=== PATIENT | female | born 1980 | race African-American/Black ===

== ENCOUNTER 2024-02-15 21:21 | Emergency (ER) | payer BC, OTHER ==
[~2024-02-15 21:21] MED LIST: Iopamidol-370 76% 500 ML MDV (1 ML CHARGE) ONE
[2024-02-15] MEDS ORDERED: Sodium Chloride 0.9% 100 ML ONE (21:32)
[2024-02-15] MEDS ORDERED: CEFAZOLIN 2 GM VIAL ONE (21:32)
[2024-02-15] MEDS ORDERED: Boostrix 0.5 ML (Tdap) VIAL (>/=7 yrs of age) ONE (21:32)
[2024-02-15] MEDS ORDERED: Ondansetron PF 4 MG/2 ML Vial ONE (21:37)
[2024-02-15] MEDS ORDERED: Morphine 4 MG/ML VIAL ONE ×2 (21:37→22:40)
[2024-02-15 21:47] LABS: Hematocrit 28.4 % (36.0-47.0); Hemoglobin 7.5 g/dL (12.0-16.0); Mean Corpuscular HGB CONC 26.4 g/dL (32.0-36.0); Mean Corpuscular Hemoglobin 16.6 pg (27.0-31.0); Platelet Count 277 10x3/uL (130-400); RBC Distribution Width 22.2 % (11.5-14.5); Red Blood Cell (RBC) Count 4.51 mill/uL (4.20-5.40)
[2024-02-15 21:56] LABS: ALT (SGPT) 7 U/L (8-55); AST (SGOT) 11 U/L (5-34); Albumin 3.9 g/dL (3.5-5.0); Alkaline Phosphatase 67 U/L (40-110); Anion Gap 13 mmol/L (10-20); BUN (Urea Nitrogen) 13 mg/dL (7.0-18.7); Bilirubin, Total 0.5 mg/dL (0.2-1.2); Calc. Creatinine Clearance 0 mL/min (70-130); Calcium 8.5 mg/dL (7.8-10.44); Carbon Dioxide 21 mmol/L (22-29); Chloride 107 mmol/L (98-107); Estimated GFR 104; Globulin 3.3 g/dL (2.4-3.5); Glucose 140 mg/dL (70-105); Potassium 3.1 mmol/L (3.5-5.1); Protein, Total 7.2 g/dL (6.0-8.3); Sodium 138 mmol/L (136-145)
[2024-02-15 21:59] LABS: Troponin I Less than 0.010 ng/mL (< 0.028)
[2024-02-15 22:20] LABS: Eosinophils 4 % (0-10); Hypochromia SLIGHT = 6-15 cells (100X) (0-5/hpf); Lymphocytes 25 % (21-51); Microcytosis SLIGHT = 6-15 cells (100X) (0-5/hpf); Monocytes 3 % (0-10); Neutrophil 68 % (42-75); Plasma Cells 0 % (0-0); Platelet Adequacy Comment Appears Adequate; Total Cell Count 100
[2024-02-15] MEDS ORDERED: Lidocaine 1% (PF) 30 ML VIAL ONE (22:21)
[2024-02-15] MEDS ORDERED: Bacitracin 1 PK ONE (22:34)
[2024-02-15] MEDS ORDERED: Ketorolac Tromethamine 30 MG (1 mL) VIAL ONE (22:40)
== END 2024-02-15 23:38 | disposition home or self-care (01) ==
LOC: EEVIPCON 21:21 → ERS 21:21
DX: S21.132A Puncture wound without foreign body of left front wall of thorax without penetration into thoracic cavity, initial encounter (principal); X95.9XXA Assault by unspecified firearm discharge, initial encounter
CPT/HCPCS: 12002; 71045; 71260; 80053; 84484; 85025; 86850; 86900; 86901; 90471; 90715; 93005; 96374; 96375; 96376; G0390; J1885; J2272; J2405; Q9967

== ENCOUNTER 2024-03-04 12:07 | Emergency (ER) | payer BC | END 2024-03-04 13:16 | disposition home or self-care (01) | LOC: ERS 12:07 | DX: T81.33XA Disruption of traumatic injury wound repair, initial encounter (principal); L03.114 Cellulitis of left upper limb ==